=== PATIENT | male | born 1950 | race Caucasian/White ===

== ENCOUNTER 2021-02-25 15:40 | Day surgery (SDC) | payer MEDICARE, BC ==
[2021-02-25] MEDS ORDERED: ASPIRIN 81M81 MG/TA2 PO (16:07)
[2021-02-25] MEDS ORDERED: CENTRUM MEN'S (16:07)
[2021-02-25] MEDS ORDERED: ALEVE SINUS & H1 TER PO (16:08)
[2021-02-25 16:42] LABS: EOS % 0.4 % (0-4.0); GRAN # 5.9 (1.4-6.5); GRAN % 75.2 % (42.2-75.2); HEMATOCRIT 48.5 % (42.0-52.0); HEMOGLOBIN 15.8 g/dl (13.5-18.0); LYMPH # 1.4 (1.2-3.4); LYMPH % 18.2 % (20.0-51.0); MEAN CELL VOLUME 91 fl (80.0-100.0); MEAN CORPUSCULAR HEMOGLOBIN 30 pg (27.0-31.0); MEAN CORPUSCULAR HGB CONC 33 g/dl (33.0-37.0); MEAN PLATELET VOLUME 9.8 fl (7.4-10.4); MONO # 0.5 (0.1-0.6); MONO % 6.1 % (1.7-9.3); PLATELET COUNT 191 K/mm3 (130-400); RED BLOOD COUNT 5.33 M/mm3 (4.20-5.60); REDCELL DISTRIBUTION WIDTH-CV 13.6 % (11.5-14.5)
[2021-02-25 16:52] LABS: CALCIUM 9.4 mg/dL (8.4-10.2); CREATININE, serum 0.67 (0.66-1.25); POTASSIUM 4.6 mmol/L (3.4-5.0)
[2021-02-25] MEDS ORDERED: COLACE 100100 MG/CAP PO (18:09)
[2021-02-25] MEDS ORDERED: GOOD NEIGH3.4 GM/Dos PO (18:10)
[2021-02-25 20:24] VITALS: BP 161/76; PULSE 72; TEMP 98.5
--- NOTE | 2021-02-25 20:59 | NUR ---
Pt has been well after the removal of foreign object. ABD still have air but pt was able to ambulate and passed gas before discharged. pain was rated 0/10 and the pt was ok to be discharge. A cab called and the pt was discharged.
== END 2021-02-25 20:50 ==
LOC: SDCO 15:40 → SURG 19:00 → SDCO 20:50
PROVIDERS: Surgery
DX: T18.5XXA Foreign body in anus and rectum, initial encounter (principal); Z87.891 Personal history of nicotine dependence; Z79.82 Long term (current) use of aspirin; Z79.899 Other long term (current) drug therapy
CPT/HCPCS: OP; J1100; J2704; J3010; J7120